=== PATIENT | male | born 1995 | race Caucasian/White ===

== ENCOUNTER 2023-08-28 07:07 | Emergency (ER) | payer OTHER ==
[2023-08-28 07:46] VITALS: PULSE 70; RESP 18; TEMP 97.7
[2023-08-28] MEDS ORDERED: NORCO 5/325 MG ONE (07:49)
[2023-08-28] MEDS: NORCO 5/325 MG PO ONE (07:50)
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
[2023-08-28] MEDS ORDERED: ZOFRAN ODT 4 MG ONE (08:39)
[2023-08-28] MEDS: ZOFRAN ODT 4 MG PO ONE (08:42)
[2023-08-28 09:04] VITALS: BP 140/64
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
[2023-08-28 09:40] VITALS: O2SAT 98
== END 2023-08-28 09:58 | disposition home or self-care (01) ==
LOC: ED 07:07
DX: S70.02XA Contusion of left hip, initial encounter (principal); S60.222A Contusion of left hand, initial encounter; V89.0XXA Person injured in unspecified motor-vehicle accident, nontraffic, initial encounter; Y92.64 Mine or pit as the place of occurrence of the external cause; Y99.0 Civilian activity done for income or pay; M54.2 Cervicalgia
CPT/HCPCS: 72050; 73130; 73502; 99283; Q0162; A9270-GY